=== PATIENT | male | born 1990 | race Caucasian/White ===

== ENCOUNTER 2021-04-24 09:43 | Emergency (ER) | payer OTHER, SELFPAY ==
--- NOTE | 2021-04-24 13:59 | NUR ---
called for triage. no answer
--- NOTE | 2021-04-24 14:00 | NUR ---
PATIENT LEFT WITHOUT BEING SEEN
== END 2021-04-24 13:59 | disposition left against medical advice (07) ==
LOC: SED 09:43
DX: S09.90XA Unspecified injury of head, initial encounter (principal); X58.XXXA Exposure to other specified factors, initial encounter; Y93.89 Activity, other specified; Y92.89 Other specified places as the place of occurrence of the external cause; Y99.8 Other external cause status; Z53.21 Procedure and treatment not carried out due to patient leaving prior to being seen by health care provider

== ENCOUNTER 2021-04-24 16:19 | Emergency (ER) | payer OTHER, SELFPAY ==
[~2021-04-24] VITALS: Ht 172.7 cm; Wt 93.0 kg
[2021-04-24 16:33] VITALS: BP_SYST 138
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
--- NOTE | 2021-04-24 16:40 | NUR ---
ER in triage examining patient.
--- NOTE | 2021-04-24 16:53 | NUR ---
Patient ambulated to radiology, accompanied by staff.
[2021-04-24 19:20] VITALS: BP_SYST 143
--- NOTE | 2021-04-24 19:20 | NUR ---
Patient given written and verbal discharge instructions and verbalizes understanding. Dr. Davis discussed with patient the results and treatment provided. Patient in stable condition. ID arm band removed. Patient educated on pain management and to follow up with PMD. Pain Scale 4, will use OTC pain meds at home. Opportunity for questions provided and answered.
== END 2021-04-24 19:20 | disposition home or self-care (01) ==
LOC: SED 16:19
DX: S09.90XA Unspecified injury of head, initial encounter (principal); F07.81 Postconcussional syndrome; G93.0 Cerebral cysts; V18.0XXA Pedal cycle driver injured in noncollision transport accident in nontraffic accident, initial encounter; Y93.89 Activity, other specified; Y92.89 Other specified places as the place of occurrence of the external cause; Y99.8 Other external cause status
CPT/HCPCS: 70450-TC; 76376; 99284